=== PATIENT | female | born 2000 | race Two or more races ===

== ENCOUNTER 2022-11-25 17:15 | Inpatient (IN) | payer MEDICAID ==
[~2022-11-25] VITALS: Ht 162.6 cm; Wt 97.7 kg
[2022-11-25 18:44] LABS: Mean Corpuscular Volume 80.5 fL (80.0-100.0)
[2022-11-25 18:46] LABS: Hematocrit 37.1 % (36.0-46.0); Mean Corpuscular Hgb Conc. 32.3 g/dL (32.0-36.0); Red Blood Cells 4.61 10^6/uL (4.0-5.20); Red Cell Distribution Width 15.5 % (11.8-14.3); White Blood Cell 29.6 10^3/uL (4.4-10.8)
[2022-11-25 18:49] LABS: Basophils % (manual) 0 (0.0-2.0); Blast Cells 0; Eosinophils % (manual) 0 (0-7); Metamyelocytes % 0; Myelocytes % 0; Promyelocytes % 0; Reactive Lymphocytes 0
[2022-11-25 19:03] LABS: Albumin 3.2 g/dL (3.4-5.0); Band Neutrophils % (manual) 9; Calcium 8.4 mg/dL (8.5-10.1); Lymphocytes % (manual) 4 (10.0-50.0); Monocytes % (manual) 7 (0-12); Potassium 3.9 mmol/L (3.5-5.1)
[2022-11-25 19:06] LABS: BUN/Creatinine Ratio 14.2 (10.0-20.0); Bilirubin, Total 0.6 mg/dL (0.2-1.0); Total Protein 7.4 g/dL (6.4-8.2)
[2022-11-25] MEDS ORDERED: VANCOMYCIN 1GM/250ML 250 ML IV ONE (20:00)
[2022-11-25] MEDS ORDERED: LACTATED RINGER S IV ONE (20:00)
[2022-11-25] MEDS ORDERED: cefTRIAXone 1GM/50ML D5W 50 ML IV ONE (20:00)
[2022-11-25 22:47] LABS: Urine Bacteria FEW /hpf (None Seen); Urine Blood Negative /uL (Negative); Urine Specific Gravity 1.004 (1.001-1.035); Urine WBC 2 /hpf (0 - 5)
[2022-11-26] MEDS ORDERED: ACETAMINOPHEN 325 MG TAB PO ONE (00:30)
[2022-11-26] MEDS ORDERED: MORPHINE SULFATE INJ 2 MG/ml SYRG IV PRN ×2 (05:30→06:15)
[2022-11-26] MEDS ORDERED: DOCUSATE SOD 100 MG CAP PO PRN (05:30)
[2022-11-26] MEDS ORDERED: VANCOMYCIN PER PHARMACY 0 MG IV SCH (05:30)
[2022-11-26] MEDS ORDERED: ONDANSETRON HCL 4 MG/2 ML VIAL IV PRN (05:30)
[2022-11-26] MEDS ORDERED: IBUPROFEN 600 MG TAB PO PRN (05:30)
[2022-11-26] MEDS ORDERED: HYDROcodone-ACET 5/325MG TAB PO PRN (05:30)
[2022-11-26] MEDS ORDERED: SODIUM CHLORIDE 0.9% 1,000 ML IV SCH (05:30)
[2022-11-26 06:05] LABS: Basophils # (auto) 0 10 ^3/uL (0-0.2); Eosinophils # (auto) 0.6 10 ^3/uL (0-0.8); Hemoglobin 11.1 g/dL (12.2-16.2); Mean Corpuscular Hemoglobin 26.8 pg (28.0-32.0); Mean Corpuscular Hgb Conc. 32.9 g/dL (32.0-36.0); Monocytes # (auto) 0.7 10 ^3/uL (0-1.3); Red Cell Distribution Width 15.4 % (11.8-14.3)
[2022-11-26 06:08] LABS: Basophils % (auto) 0.1 % (0.0-2.0); Eosinophils % (auto) 2.7 % (0.0-7.0); Hematocrit 33.9 % (36.0-46.0); Lymphocytes # (auto) 1.1 10 ^3/uL (0.4-5.4); Lymphocytes % (auto) 4.9 % (10.0-50.0); Mean Corpuscular Volume 81.4 fL (80.0-100.0); Monocytes % (auto) 3.1 % (0.0-12.0); Neutrophils # (auto) 19.7 10 ^3/uL (1.6-8.6); Neutrophils % (auto) 89.2 % (37.0-80.0); Red Blood Cells 4.16 10^6/uL (4.0-5.20); White Blood Cell 22.1 10^3/uL (4.4-10.8)
[2022-11-26] MEDS ORDERED: NITROGLYCERIN 0.4 MG SL TAB SL PRN (06:15)
[2022-11-26 06:26] LABS: Potassium 3.7 mmol/L (3.5-5.1)
[2022-11-26 06:32] LABS: Albumin 2.6 g/dL (3.4-5.0); BUN/Creatinine Ratio 12.9 (10.0-20.0); Calcium 8.6 mg/dL (8.5-10.1)
[2022-11-26 06:46] LABS: Bilirubin, Total 0.3 mg/dL (0.2-1.0); Total Protein 6.5 g/dL (6.4-8.2)
[2022-11-26] MEDS: cefTRIAXone 1GM/50ML D5W 50 ML IV SCH (08:13)
[2022-11-26] MEDS: ACETAMINOPHEN 325 MG TAB PO PRN ×2 (08:38→18:51)
[2022-11-26] MEDS: VANCOMYCIN 1GM/250ML 250 ML IV SCH ×2 (08:59→17:26)
[2022-11-26 10:41] VITALS: BP 133/76
[2022-11-26 16:51] VITALS: BP 132/93
[2022-11-26 22:00] VITALS: BP 146/97
[2022-11-27] MEDS: VANCOMYCIN 1GM/250ML 250 ML IV SCH ×3 (01:20→17:27)
[2022-11-27 05:00] VITALS: BP 117/72
[2022-11-27 05:48] LABS: Basophils # (auto) 0 10 ^3/uL (0-0.2); Monocytes # (auto) 0.8 10 ^3/uL (0-1.3)
[2022-11-27 05:52] LABS: Basophils % (auto) 0.1 % (0.0-2.0); Eosinophils # (auto) 0.9 10 ^3/uL (0-0.8); Eosinophils % (auto) 4.6 % (0.0-7.0); Hematocrit 35.4 % (36.0-46.0); Hemoglobin 11.4 g/dL (12.2-16.2); Lymphocytes # (auto) 2.2 10 ^3/uL (0.4-5.4); Mean Corpuscular Hemoglobin 26.4 pg (28.0-32.0); Mean Corpuscular Hgb Conc. 32.3 g/dL (32.0-36.0); Monocytes % (auto) 3.9 % (0.0-12.0); Neutrophils # (auto) 15.8 10 ^3/uL (1.6-8.6); Neutrophils % (auto) 80.4 % (37.0-80.0); Nucleated Red Blood Cells % 0.1 %; Red Blood Cells 4.32 10^6/uL (4.0-5.20); Red Cell Distribution Width 15.7 % (11.8-14.3); White Blood Cell 19.7 10^3/uL (4.4-10.8)
[2022-11-27 06:15] LABS: BUN/Creatinine Ratio 9.7 (10.0-20.0); Calcium 8.5 mg/dL (8.5-10.1); Potassium 3.8 mmol/L (3.5-5.1)
[2022-11-27 09:00] VITALS: BP 118/82
[2022-11-27] MEDS: cefTRIAXone 1GM/50ML D5W 50 ML IV SCH (09:32)
[2022-11-27 13:00] VITALS: BP 130/80
[2022-11-27 17:00] VITALS: BP 123/77
[2022-11-27] MEDS: ACETAMINOPHEN 325 MG TAB PO PRN (21:16)
[2022-11-27 22:00] VITALS: BP 123/77
[2022-11-28] MEDS: VANCOMYCIN 1GM/250ML 250 ML IV SCH ×2 (01:11→09:31)
[2022-11-28 05:00] VITALS: BP 120/82
[2022-11-28 06:20] LABS: Basophils # (auto) 0 10 ^3/uL (0-0.2); Basophils % (auto) 0.3 % (0.0-2.0); Eosinophils # (auto) 1.1 10 ^3/uL (0-0.8); Hematocrit 34.7 % (36.0-46.0); Hemoglobin 11.4 g/dL (12.2-16.2); Lymphocytes # (auto) 2.3 10 ^3/uL (0.4-5.4); Lymphocytes % (auto) 23.3 % (10.0-50.0); Mean Corpuscular Volume 81.7 fL (80.0-100.0); Monocytes # (auto) 0.6 10 ^3/uL (0-1.3); Monocytes % (auto) 5.9 % (0.0-12.0); Neutrophils # (auto) 5.9 10 ^3/uL (1.6-8.6); Neutrophils % (auto) 59.5 % (37.0-80.0); Red Blood Cells 4.24 10^6/uL (4.0-5.20); Red Cell Distribution Width 15.4 % (11.8-14.3); White Blood Cell 9.9 10^3/uL (4.4-10.8)
[2022-11-28 06:25] LABS: Potassium 4.2 mmol/L (3.5-5.1)
[2022-11-28 06:32] LABS: BUN/Creatinine Ratio 12.5 (10.0-20.0); Calcium 8.6 mg/dL (8.5-10.1)
[2022-11-28 09:00] VITALS: BP 115/70
[2022-11-28] MEDS: cefTRIAXone 1GM/50ML D5W 50 ML IV SCH (09:30)
[2022-11-28] MEDS ORDERED: CLIN300C70 PO (09:36)
[2022-11-28 14:00] VITALS: BP 128/89
[2022-11-28 14:19] VITALS: BP 122/88
== END 2022-11-28 15:32 | disposition home or self-care (01) | DRG 720 ==
LOC: ER 17:15 → OVERFLOW 11-26 06:18 → WEST WING 11-26 10:36
PROVIDERS: ADMIT Nurse Practitioner Family; ATTEND Internal Medicine Geriatric Medicine
DX: A41.9 Sepsis, unspecified organism (principal); E44.0 Moderate protein-calorie malnutrition; N61.0 Mastitis without abscess; Z68.37 Body mass index [BMI] 37.0-37.9, adult
CPT/HCPCS: 36415; 76642; 80048; 80053; 80202; 81001; 82962; 83605; 85007; 85025; 85027; 87040; 87086; G0378; J0696